=== PATIENT | female | born 1995 | race African-American/Black ===

== ENCOUNTER 2019-02-10 12:43 | Emergency (ER) | payer MEDICAID, OTHER ==
[~2019-02-10] VITALS: Ht 149.9 cm; Wt 57.6 kg
[2019-02-10 13:05] VITALS: BP 127/88
[2019-02-10] MEDS ORDERED: ACETAMINOPHEN 500 MG TAB PO ONE (14:30)
== END 2019-02-10 15:26 | disposition home or self-care (01) ==
LOC: EDBD 12:43 → ER 12:48
DX: S16.1XXA Strain of muscle, fascia and tendon at neck level, initial encounter (principal); M54.5 Low back pain; V49.49XA Driver injured in collision with other motor vehicles in traffic accident, initial encounter; Y93.89 Activity, other specified; Y99.8 Other external cause status; Y92.89 Other specified places as the place of occurrence of the external cause
CPT/HCPCS: 72040